=== PATIENT | male | born 1965 | race Caucasian/White ===

== ENCOUNTER 2018-06-10 07:20 | Outpatient (CLI) | payer OTHER ==
[~2018-06-10] VITALS: Ht 177.8 cm; Wt 93.0 kg
== END 2018-06-10 07:40 | disposition home or self-care (01) ==
LOC: OFIC 805 07:20
DX: H91.8X2 Other specified hearing loss, left ear (principal); M62.838 Other muscle spasm; J30.89 Other allergic rhinitis

== ENCOUNTER 2019-10-19 15:09 | Outpatient (CLI) | payer OTHER | END 2019-10-19 15:25 | disposition home or self-care (01) | LOC: NUCLEAR 15:09 | DX: I82.402 Acute embolism and thrombosis of unspecified deep veins of left lower extremity (principal) ==

== ENCOUNTER 2022-01-25 10:13 | Outpatient (CLI) | payer OTHER | END 2022-01-25 10:14 | disposition home or self-care (01) | LOC: NUCLEAR 10:13 | PROVIDERS: ATTEND Thoracic Surgery (Cardiothoracic Vascular Surgery) | DX: I87.2 Venous insufficiency (chronic) (peripheral) (principal); I73.9 Peripheral vascular disease, unspecified; Z88.6 Allergy status to analgesic agent ==

== ENCOUNTER 2022-01-26 10:20 | Outpatient (CLI) | payer OTHER | END 2022-01-26 10:21 | disposition home or self-care (01) | LOC: NUCLEAR 10:20 | PROVIDERS: ATTEND Thoracic Surgery (Cardiothoracic Vascular Surgery) | DX: I87.2 Venous insufficiency (chronic) (peripheral) (principal); I73.9 Peripheral vascular disease, unspecified; Z88.6 Allergy status to analgesic agent ==

== ENCOUNTER 2025-03-29 07:34 | Outpatient (CLI) | payer OTHER | END 2025-03-29 07:35 | disposition home or self-care (01) | LOC: TOM 07:34 | PROVIDERS: ATTEND Internal Medicine | DX: I71.011 Dissection of aortic arch (principal); G45.8 Other transient cerebral ischemic attacks and related syndromes | CPT/HCPCS: 71275; 74174; Q9965 ==